=== PATIENT | female | born 1940 | race Asian ===

== ENCOUNTER 2022-10-24 14:49 | Inpatient (IN) | payer MEDICARE, BC ==
[~2022-10-24] VITALS: Ht 157.5 cm; Wt 46.3 kg
[2022-10-24] MEDS ORDERED: LOSA50TA39 PO (14:58)
[2022-10-24] MEDS ORDERED: RISP0.2515 PO (14:58)
[2022-10-24] MEDS ORDERED: ESCI5TAB PO (14:58)
[2022-10-24] MEDS ORDERED: AMLO-212 PO (14:58)
[2022-10-24] MEDS ORDERED: DONE5TAB34 PO (15:07)
[2022-10-24] MEDS ORDERED: BLOOD SUGAR DIAGNOSTIC 1 EACH STRIP IN ONE (15:30)
[2022-10-24] MEDS ORDERED: hydrOXYzine PAMOATE 25 MG CAPSULE PO PRN (15:30)
[2022-10-24] MEDS ORDERED: MAGNESIUM HYDROXIDE 30 ML UDC PO PRN (15:30)
[2022-10-24] MEDS ORDERED: TRAZODONE 50 MG TABLET PO PRN (15:30)
[2022-10-24] MEDS ORDERED: ACETAMINOPHEN 325 MG TABLET PO PRN (15:30)
[2022-10-24] MEDS ORDERED: MAG HYDROX/AL HYDROX/SIMETH 30 ML UDC PO PRN (15:30)
--- NOTE | 2022-10-24 15:30 | NUR ---
GPS/RN ADMITTED PT ON 5150 FOR DANGER TO HERSELF( OVERDOSED ON MEDICATION) DIRECT ADMIT FROM [facility]. FAMILY AT THE BEDSIDE AT ADMISSION. ON FACE TO FACE ASSESSMENT PT STATED NO SI/HI. PROPERTY CHECKED FOR CONTRABAND. BED ALARM TURNED ON. CALL MATT PLACED BY BEDSIDE. ADMITTING ORDERS RECEIVED AND CARRIED OUT
[2022-10-24 15:47] VITALS: BP 152/67
--- NOTE | 2022-10-24 15:59 | NUR ---
Dr. Arellano made aware of the admission and gave orders.
[2022-10-24 16:00] VITALS: BP 152/67
--- NOTE | 2022-10-24 20:19 | NUR ---
RN NOTES: PT.RESTING IN ROOM. PT A/O X2, ANXIOUS, PARANOID, NEEDY ,EASILY AGITATED NEEDS FREQUENT REDIRECTIONS, PREOCCUPIED IN OWN THOUGHTS, DEPRESSED, POOR INSIGHT,SAFETY PRECAUTIONS MAINTAINED, ENCOURAGED TO VERBALIZED ANY FEELING OR CONCERN , FAMILY VISTED ,WILL CONT TO MONITOR FOR SAFETY AND BEHAVIOR.
[2022-10-24 20:44] VITALS: BP 150/72
--- NOTE | 2022-10-24 21:39 | NUR ---
RN NOTES:INSOMNIA PT.C/O UNABLE TO SLEEP PRN TRAZADONE 25 MG PO GIVEN PER PT. REQUEST,WILL CONTINUE TO MONITOR.
[2022-10-25 07:51] LABS: ALBUMIN 2.6 g/dL (3.4-5.0); BILIRUBIN,TOTAL 0.8 mg/dL (0.2-1.0); CALCIUM, SERUM 8.5 mg/dL (8.5-10.1); CREATININE 0.9 mg/dL (0.6-1.3); POTASSIUM 3.5 mmol/L (3.5-5.1); TOTAL PROTEIN, SERUM 5.9 g/dL (6.4-8.2)
[2022-10-25 08:00] VITALS: BP 160/70
[2022-10-25] MEDS: AMLODIPINE BESYLATE 5 MG TABLET PO SCH (08:55)
[2022-10-25] MEDS: LOSARTAN POTASSIUM 50 MG TABLET PO SCH (08:55)
[2022-10-25 16:00] VITALS: BP 155/74
--- NOTE | 2022-10-25 19:30 | NUR ---
GPS RN OPENING NOTE PT AWAKE IN BED, FAMILY AT BEDSIDE. A/O X2 AND ABLE TO MAKE NEEDS KNOWN. PT IS ANXIOUS, PREOCCUPIED IN OWN THOUGHTS, DEPRESSED, POOR INSIGHT, AND MED COMPLIANT. PT MEDICALLY STABLE AT THIS TIME. WILL CONT TO MONITOR FOR SAFETY AND BEHAVIOR.
[2022-10-25 20:09] VITALS: BP 160/74
[2022-10-25] MEDS: TRAZODONE 50 MG TABLET PO SCH (21:01)
[2022-10-25] MEDS: ZOLPIDEM TARTRATE 5 MG TABLET PO PRN (22:51)
--- NOTE | 2022-10-25 22:51 | NUR ---
RN NOTE PT STILL COMPLAINING OF INSOMNIA AFTER TAKING TRAZODONE. INFORMED DR GOSS WITH NEW ORDER. NOTED AND CARRIED OUT. ADMINISTERED AMBIEN 5 MG FOR INSOMNIA ORDERED. MADE COMFORTABLE IN BED. ALL NEEDS MET AT THIS TIME.
--- NOTE | 2022-10-26 06:40 | NUR ---
GPS RN CLOSING NOTE PT RSTING IN BED, VERBALLY RESPONSIVE. A/O X2 AND ABLE TO MAKE NEEDS KNOWN. PT IS ANXIOUS, PREOCCUPIED IN OWN THOUGHTS, EASILY FRUSTRATED, DEPRESSED, POOR INSIGHT, AND MED COMPLIANT. SLEPT 9 HOURS THIS SHIFT. PT MEDICALLY STABLE AT THIS TIME. ALL DUE MEDS GIVEN ORDERED. WILL CONT TO MONITOR FOR SAFETY AND BEHAVIOR AND WILL ENDORSE TO ONCOMING NURSE FOR [place].
[2022-10-26 08:00] VITALS: BP 154/72
[2022-10-26] MEDS: AMLODIPINE BESYLATE 5 MG TABLET PO SCH (08:23)
[2022-10-26] MEDS: LOSARTAN POTASSIUM 50 MG TABLET PO SCH (08:23)
[2022-10-26] MEDS: DONEPEZIL 5 MG TABLET PO SCH (09:53)
--- NOTE | 2022-10-26 12:25 | NUR ---
MAYNOR Initial Discharge Note: Patient lives at home located at [address] [place] [address]; ([phone]). Pt did not give any other information. SW will contact pt's son Zaki ([phone]) to gather information and discuss treatment/discharge plan.
--- NOTE | 2022-10-26 12:25 | NUR ---
MAYNOR Clinical Note: Pt placed on a 5150 hold for danger to herself. Per hold, pt overdosed on ambien. Patient lives at home located at [address] [place] [address]; ([phone]). Pt did not give any other information. MAYNOR will contact pt's son Zaki ([phone]) to gather information and discuss treatment/discharge plan.
[2022-10-26] MEDS: ENSURE ENLIVE 237 ML LIQUID (VANILLA) PO SCH ×2 (13:02→17:10)
--- NOTE | 2022-10-26 13:39 | NUR ---
MAYNOR Family Contact: MAYNOR spoke with pt's son Zaki ([phone]) who stated that pt lives alone but will take responsibility [address] [place] [address]. Son stated that pt has been depressed because of her stability. He expressed that pt has been getting Ambien from multiple doctors. MAYNOR explained the 5150/5250 process and educated.
[2022-10-26 16:00] VITALS: BP 150/66
[2022-10-26 20:51] VITALS: BP 160/69
[2022-10-26 21:00] VITALS: BP 142/75
[2022-10-26] MEDS: TRAZODONE 50 MG TABLET PO SCH (21:08)
[2022-10-26] MEDS: ZOLPIDEM TARTRATE 5 MG TABLET PO PRN (21:30)
[2022-10-27 08:00] VITALS: BP 156/71
--- NOTE | 2022-10-27 08:47 | NUR ---
Court Notification: SW attempted to contact pt's son Zaki ([phone]) and stated that the phone number does not work.
[2022-10-27] MEDS: DONEPEZIL 5 MG TABLET PO SCH (08:55)
[2022-10-27] MEDS: AMLODIPINE BESYLATE 5 MG TABLET PO SCH (08:56)
[2022-10-27] MEDS: ENSURE ENLIVE 237 ML LIQUID (VANILLA) PO SCH ×3 (08:56→17:28)
[2022-10-27] MEDS: LOSARTAN POTASSIUM 50 MG TABLET PO SCH (08:56)
--- NOTE | 2022-10-27 14:56 | NUR ---
Court Hearing: Patient's court hearing for 5250 was today and it was upheld for GD and danger to self.
[2022-10-27 16:00] VITALS: BP 139/65
[2022-10-27 20:11] VITALS: BP 155/68
[2022-10-27] MEDS: TRAZODONE 50 MG TABLET PO SCH (21:01)
[2022-10-27] MEDS: ZOLPIDEM TARTRATE 5 MG TABLET PO PRN (21:11)
[2022-10-28 08:00] VITALS: BP 146/65
[2022-10-28] MEDS: DONEPEZIL 5 MG TABLET PO SCH (08:37)
[2022-10-28] MEDS: AMLODIPINE BESYLATE 5 MG TABLET PO SCH (08:38)
[2022-10-28] MEDS: LOSARTAN POTASSIUM 50 MG TABLET PO SCH (08:38)
[2022-10-28] MEDS: ENSURE ENLIVE 237 ML LIQUID (VANILLA) PO SCH ×3 (08:38→17:48)
--- NOTE | 2022-10-28 10:37 | NUR ---
MAYNOR Coordination of Care: Patient will follow up with a Nurse Practioner for intake at [facility] located at [address] [place] [address] [id number]; ([phone]) on November 04 at 10:15AM who will provide pts antipsychotic medications, scheduled by mary Lauren faxed ([phone]).
[2022-10-28 16:00] VITALS: BP 144/66
[2022-10-28 19:26] VITALS: BP 153/67
--- NOTE | 2022-10-28 20:00 | NUR ---
RN NOTE: NOTIFIED EPIC ON-CALL ZOHRA FERNANDEZ REGARDING PATIENT'S BLOOD PRESSURE IS ON THE HIGH SIDE BETWEEN 140-150'S. PATIENT IS CURRENTLY ON NORVASC 5MG PO QD AND COZAAR 50MG PO QD. AWAITING FOR A CALL BACK FROM ZOHRA FERNANDEZ.
[2022-10-28] MEDS: TRAZODONE 50 MG TABLET PO SCH (21:02)
[2022-10-28] MEDS: ZOLPIDEM TARTRATE 5 MG TABLET PO PRN (21:11)
[2022-10-29 08:00] VITALS: BP 118/69
[2022-10-29] MEDS: AMLODIPINE BESYLATE 5 MG TABLET PO SCH (09:13)
[2022-10-29] MEDS: LOSARTAN POTASSIUM 50 MG TABLET PO SCH (09:13)
[2022-10-29] MEDS: DONEPEZIL 5 MG TABLET PO SCH (09:13)
[2022-10-29] MEDS: ENSURE ENLIVE 237 ML LIQUID (VANILLA) PO SCH ×3 (09:17→16:00)
--- NOTE | 2022-10-29 09:45 | NUR ---
RN-CO: Patient is in her room, denied pain and discomforts. Took her medicines and ate her breakfast. She remains unmotivated, depressed and withdrawn. Encouraged to participate in groups and call for assistance. We will continue to monitor.
[2022-10-29 16:00] VITALS: BP 143/72
--- NOTE | 2022-10-29 19:30 | NUR ---
GPS RN NOTE, RECEIVED PATIENT AWAKE AND IN BED, NO S/S OR COMPLAINTS OF PAIN AT THIS TIME. PATIENT IS DISPLAYING NO S/S OF APPARENT DISTRESS AT THIS TIME. PATIENT BREATHING IS UNLABORED WITH EQUAL RISE AND FALL OF THE CHEST. PATIENT IS ALERT AND ORIENTED X 1 ON ROOM AIR WITH A SPO2 95%. PATIENT IS COMPLAINT WITH MEDICATIONS, SPEAKS FRENCH WITH SOME CUBAN, ANXIOUS AT TIMES, MAKES NEEDS KNOWN, AND COOPERATIVE. PATIENT DENIES SUICIDAL AND HOMICIDAL IDEATIONS AT THIS TIME. PATIENT ASSISTED WITH TURNING AND REPOSITIONING Q2HR AND PRN FOR COMFORT AND CIRCULATION. PATIENT HAS NO NEEDS AT THIS TIME. PATIENT EDUCATED ON THE USE OF THE CALL MATT. PATIENT BED SIDE RAILS UP X 2 FOR SAFETY. PATIENT BED IS LOCKED, LOW, WITH BED ALARM ON. WILL CONTINUE TO MONITOR THIS PATIENT Q15 MINUTES WITH THE HELP OF STAFF TO MAINTAIN SAFETY.
[2022-10-29] MEDS: ZOLPIDEM TARTRATE 5 MG TABLET PO PRN (21:18)
[2022-10-29] MEDS: TRAZODONE 50 MG TABLET PO SCH (21:18)
--- NOTE | 2022-10-29 21:19 | NUR ---
GPS RN NOTE,PATIENT HAS A COMPLAINT OF NOT BEING ABLE TO SLEEP AND IS REQUESTING AMBIEN AT THIS TIME. PATIENT VITAL SIGNS ARE STABLE. GAVE AMBIEN 5MG PO HS PRN ORDERED. WILL REASSESS FOR INSOMNIA AND I WILL CONTINUE TO MONITOR THIS PATIENT WITH THE HELP OF STAFF.
[2022-10-30 08:00] VITALS: BP 139/69
[2022-10-30] MEDS: ENSURE ENLIVE 237 ML LIQUID (VANILLA) PO SCH ×3 (08:41→17:17)
[2022-10-30] MEDS: AMLODIPINE BESYLATE 5 MG TABLET PO SCH (08:42)
[2022-10-30] MEDS: DONEPEZIL 5 MG TABLET PO SCH (08:42)
[2022-10-30] MEDS: LOSARTAN POTASSIUM 50 MG TABLET PO SCH (08:42)
--- NOTE | 2022-10-30 10:50 | NUR ---
RN Notes: Received pt. awake in bed, pleasant upon approached. Ate 100% for breakfast and compliant on meds. Pt. is quiet and isolates in the room. Encouraged to verbalize feelings and motivated to attend group activities. Needs attended and will continue to monitor for safety.
[2022-10-30 16:00] VITALS: BP 147/64
[2022-10-30 20:41] VITALS: BP 149/66
[2022-10-30] MEDS: TRAZODONE 50 MG TABLET PO SCH (21:07)
[2022-10-30] MEDS: ZOLPIDEM TARTRATE 5 MG TABLET PO PRN (22:20)
--- NOTE | 2022-10-30 22:21 | NUR ---
RN NOTES: INSOMNIA PT. C/O UNABLE TO SLEEP ,PRN AMBIEN 5 MG PO GIVEN ,PER PT. REQUEST ,WILL CONTINUE TO MONITOR.
[2022-10-31 08:00] VITALS: BP 129/63
[2022-10-31] MEDS: ENSURE ENLIVE 237 ML LIQUID (VANILLA) PO SCH ×3 (08:52→17:07)
[2022-10-31] MEDS: DONEPEZIL 5 MG TABLET PO SCH (08:52)
[2022-10-31] MEDS: LOSARTAN POTASSIUM 50 MG TABLET PO SCH (08:53)
[2022-10-31] MEDS: AMLODIPINE BESYLATE 5 MG TABLET PO SCH (08:53)
--- NOTE | 2022-10-31 10:21 | NUR ---
RN-NOTES RECEIVED PATIENT AROUND 0700 AM SLEEPING WITH BREATHING EVEN AND NON LABORED EASILY AROUSED A/OX2. COMPLIANT WITH MEDICATIONS.PATIENT IS COOPERATIVE WITH STAFF, ABLE TO MAKE NEEDS KNOWN TO THE STAFF. PATIENT ABLE TO AMBULATE TO THE BATHROOM WITH STEADY GAIT. ALL NEEDS ATTENDED AND ANTICIPATED. WILL CONT.MONITORING FOR SAFETY AND BEHAVIOR.
[2022-10-31 16:00] VITALS: BP 127/63
--- NOTE | 2022-10-31 19:30 | NUR ---
GPS RN NOTE, RECEIVED PATIENT AWAKE AND IN BED, NO S/S OR COMPLAINTS OF PAIN AT THIS TIME. PATIENT IS DISPLAYING NO S/S OF APPARENT DISTRESS AT THIS TIME. PATIENT BREATHING IS UNLABORED WITH EQUAL RISE AND FALL OF THE CHEST. PATIENT IS ALERT AND ORIENTED X 1-2 ON ROOM AIR WITH A SPO2 94%. PATIENT IS COMPLAINT WITH MEDICATIONS, SPEAKS KYRGYZ WITH SOME ITALIAN, ANXIOUS AT TIMES, MAKES NEEDS KNOWN, AND COOPERATIVE. PATIENT DENIES SUICIDAL AND HOMICIDAL IDEATIONS AT THIS TIME. PATIENT ASSISTED WITH TURNING AND REPOSITIONING Q2HR AND PRN FOR COMFORT AND CIRCULATION. PATIENT HAS NO NEEDS AT THIS TIME. PATIENT EDUCATED ON THE USE OF THE CALL MATT. PATIENT BED SIDE RAILS UP X 2 FOR SAFETY. PATIENT BED IS LOCKED, LOW, WITH BED ALARM ON. WILL CONTINUE TO MONITOR THIS PATIENT Q15 MINUTES WITH THE HELP OF STAFF TO MAINTAIN SAFETY.
[2022-10-31 20:49] VITALS: BP 146/71
[2022-10-31] MEDS: ZOLPIDEM TARTRATE 5 MG TABLET PO PRN (21:01)
[2022-10-31] MEDS: TRAZODONE 50 MG TABLET PO SCH (21:01)
[2022-11-01 08:00] VITALS: BP 145/83
[2022-11-01] MEDS: LOSARTAN POTASSIUM 50 MG TABLET PO SCH (08:20)
[2022-11-01] MEDS: DONEPEZIL 5 MG TABLET PO SCH (08:20)
[2022-11-01] MEDS: AMLODIPINE BESYLATE 5 MG TABLET PO SCH (08:20)
[2022-11-01] MEDS: ENSURE ENLIVE 237 ML LIQUID (VANILLA) PO SCH ×3 (08:21→17:47)
--- NOTE | 2022-11-01 09:20 | NUR ---
RN Notes: Received pt. awake in bed and pleasant upon approached. Ate 100% for breakfast and compliant on meds. Pt. isolates in the room and was encouraged to attend group activities and to verbalize feelings. Needs attended and will continue to monitor for safety.
[2022-11-01 16:00] VITALS: BP 128/62
[2022-11-01 20:00] VITALS: BP 129/66
[2022-11-01] MEDS: TRAZODONE 50 MG TABLET PO SCH (21:03)
[2022-11-01] MEDS: ZOLPIDEM TARTRATE 5 MG TABLET PO PRN (21:18)
[2022-11-02 08:00] VITALS: BP 143/67
--- NOTE | 2022-11-02 08:11 | NUR ---
SW Discharge Note: Patient will discharge to [facility] located at [address] [place] [id number]; ([phone]). Patients son Zaki ([phone]) involved in the care and will picker feeder pt at 1PM. Patient is alert and oriented x2. Patient denies suicidal or homicidal ideation. Patient denies visual/auditory hallucinations. Patient will follow up with a Nurse Practioner for intake at [facility] located at [address] [place] [address] [id number]; ([phone]) on November 04 at 10:15AM who will provide pts antipsychotic medications, scheduled by mary Lauren faxed ([phone]). Patient presents with euthymic mood and congruent affect.
[2022-11-02] MEDS: DONEPEZIL 5 MG TABLET PO SCH (09:20)
[2022-11-02] MEDS: AMLODIPINE BESYLATE 5 MG TABLET PO SCH (09:21)
[2022-11-02 09:23] VITALS: BP 143/67
[2022-11-02] MEDS: LOSARTAN POTASSIUM 50 MG TABLET PO SCH (09:23)
[2022-11-02] MEDS: ENSURE ENLIVE 237 ML LIQUID (VANILLA) PO SCH (09:24)
--- NOTE | 2022-11-02 12:40 | NUR ---
DISCHARGE NOTE 82 YEAR OLD FEMALE DISCHARGED TO HOME WITH SON IN STABLE CONDITION. COMPLIANT WITH MEDICATIONS, COOPERATIVE WITH TX PLANS. PT DENIES SI/HI AND INSTRUCTED TO GO TO THE CLOSEST ER IF DEVELOPING SI/HI. BEHAVIOR IMPROVED, PSYCHIATRIC TX PLANS MET. MEDICAL TX PLANS DEFERRED FOR CONTINUAL MONITORING. EDUCATED PT ABOUT AFTER CARE PLAN AND COPY PROVIDED. RETURNED PERSONAL BELONGINGS TO PT. MEDICATIONS RECONCILED WITH DR. ALCOCER FOR DR GOSS AND DR. KELLEY PT REFUSED TO SIGN SOME DISCHARGE PAPER WORK. WOUND PICTURES TAKEN AND DOCUMENTED IN CHART PT LEFT THE UNIT AT 1240 WITH SON.
== END 2022-11-02 12:40 | disposition home or self-care (01) | DRG 881 ==
LOC: GPS 14:49
PROVIDERS: ADMIT Nurse Practitioner Psychiatric/Mental Health; ATTEND Nurse Practitioner Acute Care
DX: F32.9 Major depressive disorder, single episode, unspecified (principal); F03.93 Unspecified dementia, unspecified severity, with mood disturbance; F03.94 Unspecified dementia, unspecified severity, with anxiety; F03.92 Unspecified dementia, unspecified severity, with psychotic disturbance; R45.851 Suicidal ideations; F41.9 Anxiety disorder, unspecified; G47.00 Insomnia, unspecified; I10 Essential (primary) hypertension; T42.6X1D Poisoning by other antiepileptic and sedative-hypnotic drugs, accidental (unintentional), subsequent encounter; Z91.410 Personal history of adult physical and sexual abuse; Z91.51 Personal history of suicidal behavior; Z91.81 History of falling; R27.8 Other lack of coordination; F29 Unspecified psychosis not due to a substance or known physiological condition; Z73.6 Limitation of activities due to disability; R53.1 Weakness; Z79.899 Other long term (current) drug therapy
CPT/HCPCS: 36415; 80053-TC; 80061-TC; 82962-TC; 87081-TC; 97116-TC; 97530-TC